=== PATIENT | female | born 1950 | race Caucasian/White ===

== ENCOUNTER 2018-05-02 08:49 | Day surgery (SDC) | payer MEDICARE ==
[~2018-05-02] VITALS: Ht 175.3 cm; Wt 68.0 kg
[~2018-05-02 08:49] MED LIST: CLONAZEP ODT0.5 MG PO; LEVO-T25 MCG PO; PREVACID15 M3 PO; SYNTHROID88 MCG PO
[2018-05-02 13:01] VITALS: BP 118/61
== END 2018-05-02 13:15 | disposition home or self-care (01) ==
LOC: ENDO 08:49 → ORM 11:35 → ENDO 11:45 → ORM 12:20 → ENDO 13:15 → ORM 19:15
PROVIDERS: ATTEND Internal Medicine Gastroenterology
PROC: 0D758ZZ Dilation of Esophagus, Via Natural or Artificial Opening Endoscopic (ICD-10-PCS; principal; 2018-05-02)
PROC: 0DB48ZX Excision of Esophagogastric Junction, Via Natural or Artificial Opening Endoscopic, Diagnostic (ICD-10-PCS; 2018-05-02)
PROC: 0DBK8ZX Excision of Ascending Colon, Via Natural or Artificial Opening Endoscopic, Diagnostic (ICD-10-PCS; 2018-05-02)
DX: D12.2 Benign neoplasm of ascending colon (principal); K57.30 Diverticulosis of large intestine without perforation or abscess without bleeding; K64.8 Other hemorrhoids; K64.4 Residual hemorrhoidal skin tags; K22.2 Esophageal obstruction; K21.9 Gastro-esophageal reflux disease without esophagitis; K29.50 Unspecified chronic gastritis without bleeding; K29.80 Duodenitis without bleeding; K44.9 Diaphragmatic hernia without obstruction or gangrene; E03.9 Hypothyroidism, unspecified